=== PATIENT | female | born 1990 | race African-American/Black ===

== ENCOUNTER 2016-09-21 16:01 | Emergency (ER) | payer OTHER ==
[~2016-09-21] VITALS: Ht 167.6 cm; Wt 68.0 kg
[~2016-09-21 16:01] MED LIST: ALPR2TAB2 PO; FERR1TAB84 PO
[2016-09-21 16:29] VITALS: BP 116/66
== END 2016-09-21 19:51 | disposition left against medical advice (07) ==
LOC: ER 16:01
DX: Z53.21 Procedure and treatment not carried out due to patient leaving prior to being seen by health care provider (principal)

== ENCOUNTER 2017-10-10 12:08 | Emergency (ER) | payer OTHER ==
[~2017-10-10] VITALS: Ht 167.6 cm; Wt 70.0 kg
[2017-10-10] MEDS ORDERED: MORPHINE SULFATE 4 MG/ML CPJ (NOT FOR IM USE) IV STA (12:24)
[2017-10-10] MEDS ORDERED: ONDANSETRON HCL 4MG/2ML VIAL IV STA (12:24)
[2017-10-10] MEDS ORDERED: SODIUM CHLORIDE 0.9% 1,000 ML IV ONE (12:24)
[2017-10-10 12:45] LABS: BASOPHILS % 0.3 % (0.0-2.0); EOSINOPHILS % 0.4 % (0.0-5.0); HEMATOCRIT. 38.1 % (36.0-48.0); HEMOGLOBIN. 13.1 g/dL (12.0-16.0); LYMPHOCYTES % 8.1 % (20.0-50.0); MEAN CORPUSCULAR HEMOGLOBIN 30.3 pg (28.0-32.0); MEAN CORPUSCULAR VOLUME 88.4 fL (81.0-99.0); MEAN PLATELET VOLUME 9.3 fl (7.4-10.4); NEUTROPHILS % 81.2 % (40.0-76.0); PLATELET 272 x1000/uL (130-400); RED BLOOD CELL COUNT 4.31 mill/uL (4.2-5.4)
[2017-10-10 12:50] LABS: CHLORIDE 105 mEq/L (98-107)
[2017-10-10 13:08] LABS: HCG SCREEN NEGATIVE
[2017-10-10] MEDS ORDERED: ACETAMINOPHEN 325MG TABLET PO ONE (13:45)
[2017-10-10] MEDS ORDERED: CLINDAMYCIN 900 MG in DEXTROSE 5% WATER 50 ML IV ONE (14:30)
[2017-10-10] MEDS ORDERED: IOHEXOL-300 100 ML BOTTLE ONE (14:50)
[2017-10-10] MEDS ORDERED: MORPHINE SULFATE 4 MG/ML CPJ (NOT FOR IM USE) IV ONE (15:15)
[2017-10-10] MEDS ORDERED: CLINDAMYCIN 900 MG in DEXTROSE 5% WATER 50 ML IV NR (15:15)
[2017-10-10 17:46] VITALS: BP 110/65
== END 2017-10-10 17:53 | disposition home or self-care (01) ==
LOC: ER 13:33
DX: L02.211 Cutaneous abscess of abdominal wall (principal); F12.10 Cannabis abuse, uncomplicated
CPT/HCPCS: 36415; 74177; 80053; 84703; 85025; 87040; 96365; 96375; 96376; 99285; J2270; J2405; J3490; J7030; Q9967; J7060

== ENCOUNTER 2018-07-09 15:20 | Emergency (ER) | payer MEDICAID, OTHER ==
[~2018-07-09] VITALS: Ht 167.6 cm; Wt 86.0 kg
[2018-07-09 20:33] LABS: CLARITY URINE CLEAR (CLEAR); COLOR URINE YELLOW (YELLOW); KETONES URINE NEGATIVE (NEGATIVE); LEUKOCYTE ESTERASE URINE 1+ (NEGATIVE); NITRITE URINE NEGATIVE (NEGATIVE); OCCULT BLOOD URINE NEGATIVE (NEGATIVE); PH URINE 5.5 (4.5-8.0); PROTEIN URINE TRACE (NEGATIVE); SPECIFIC GRAVITY URINE 1.034 (1.005-1.030)
[2018-07-09 21:22] LABS: BASOPHILS % 0.7 % (0.0-2.0); CHLORIDE 109 mEq/L (98-107); EOSINOPHILS % 4.3 % (0.0-5.0); HEMATOCRIT. 37.1 % (36.0-48.0); HEMOGLOBIN. 12.5 g/dL (12.0-16.0); LYMPHOCYTES % 28.2 % (20.0-50.0); MEAN CORPUSCULAR HEMOGLOBIN 30.6 pg (28.0-32.0); MEAN CORPUSCULAR VOLUME 91.3 fL (81.0-99.0); MEAN PLATELET VOLUME 9.5 fl (7.4-10.4); MONOCYTES % 10.1 % (2.0-8.0); NEUTROPHILS % 56.7 % (40.0-76.0); PLATELET 289 x1000/uL (130-400); RED BLOOD CELL COUNT 4.06 mill/uL (4.2-5.4); RED CELL DISTRIBUTION WIDTH 13.3 % (11.6-14.6)
[2018-07-09 21:45] LABS: B-HCG QUANTITATIVE 10820 mIU/mL (<3)
[2018-07-09 22:17] VITALS: BP 118/65
== END 2018-07-09 22:20 | disposition home or self-care (01) ==
LOC: ER 15:20
DX: O23.40 Unspecified infection of urinary tract in pregnancy, unspecified trimester (principal); O9A.219 Injury, poisoning and certain other consequences of external causes complicating pregnancy, unspecified trimester; R51 Headache; R42 Dizziness and giddiness; M54.2 Cervicalgia; M54.9 Dorsalgia, unspecified; F12.10 Cannabis abuse, uncomplicated; Z98.890 Other specified postprocedural states; V43.62XA Car passenger injured in collision with other type car in traffic accident, initial encounter; Y93.89 Activity, other specified; Y92.89 Other specified places as the place of occurrence of the external cause; Y99.8 Other external cause status
CPT/HCPCS: 36415; 76801; 76817; 80053; 81003; 81025; 84702; 85025; 86850; 86900; 86901; 99284; Z7610

== ENCOUNTER 2022-04-25 07:53 | Observation (INO) | payer MEDICAID, OTHER ==
[~2022-04-25] VITALS: Ht 167.6 cm; Wt 95.0 kg
[2022-04-25] MEDS ORDERED: LEVETIRACETAM 500MG PREMIX 100 ML IV ONE (08:00)
[2022-04-25] MEDS ORDERED: ONDANSETRON HCL 4MG/2ML INJ IV ONE ×2 (08:30→10:45)
[2022-04-25] MEDS ORDERED: LEVETIRACETAM 1000MG PREMIX 100 ML IV ONE (08:30)
[2022-04-25 09:39] VITALS: BP 144/79
[2022-04-25 09:50] LABS: BASOPHILS % 0.4 % (0.0-2.0); EOSINOPHILS % 1.8 % (0.0-5.0); HEMATOCRIT. 37.4 % (36.0-48.0); HEMOGLOBIN. 12.3 g/dL (12.0-16.0); LYMPHOCYTES % 17.4 % (20.0-50.0); MEAN CORPUSCULAR HEMOGLOBIN 30.7 pg (28.0-32.0); MEAN CORPUSCULAR VOLUME 93.1 fL (81.0-99.0); MEAN PLATELET VOLUME 9.6 fl (7.4-10.4); MONOCYTES % 10.3 % (2.0-8.0); NEUTROPHILS % 70.1 % (40.0-76.0); PLATELET 349 x1000/uL (130-400); RED BLOOD CELL COUNT 4.01 mill/uL (4.2-5.4); RED CELL DISTRIBUTION WIDTH 14.2 % (11.6-14.6)
[2022-04-25 09:54] LABS: CHLORIDE 103 mEq/L (98-107)
[2022-04-25] MEDS ORDERED: POTASSIUM CHLORIDE 20MEQ TABLET SR PO ONE (10:15)
[2022-04-25 10:19] LABS: B-HCG QUANTITATIVE 22797 mIU/mL (<3); ETHANOL BLOOD < 10 mg/dL
== END 2022-04-25 13:45 | disposition home or self-care (01) ==
LOC: ER 07:53 → 8 EST A/PP 12:17
PROVIDERS: ADMIT Specialist; ATTEND Specialist
DX: O99.353 Diseases of the nervous system complicating pregnancy, third trimester (principal); G40.909 Epilepsy, unspecified, not intractable, without status epilepticus; O99.283 Endocrine, nutritional and metabolic diseases complicating pregnancy, third trimester; E87.6 Hypokalemia; Z3A.28 28 weeks gestation of pregnancy; Z98.891 History of uterine scar from previous surgery; Z79.899 Other long term (current) drug therapy; Z98.890 Other specified postprocedural states
CPT/HCPCS: 36415; 59025; 76805; 76818; 80053; 80320; 82962; 84702; 85025; 96365; 96375; 99284; G0378; J1953; J2405; 99281; G0480

== ENCOUNTER 2022-09-19 11:30 | Emergency (ER) | payer MEDICAID, OTHER ==
[~2022-09-19] VITALS: Ht 172.7 cm; Wt 80.0 kg
[~2022-09-19 11:30] MED LIST changes: -ALPR2TAB2 PO
[2022-09-19] MEDS ORDERED: LORAZEPAM 2MG/ML CPJ IM ONE (12:00)
[2022-09-19] MEDS ORDERED: SODIUM CHLORIDE 0.9% 1,000 ML IV ONE (13:15)
[2022-09-19] MEDS ORDERED: ONDANSETRON HCL 4MG/2ML INJ IV ONE (13:15)
[2022-09-19 14:46] LABS: HEMATOCRIT. 39.3 % (36.0-48.0); HEMOGLOBIN. 12.6 g/dL (12.0-16.0); MEAN CORPUSCULAR HEMOGLOBIN 28.6 pg (28.0-32.0); MEAN CORPUSCULAR VOLUME 88.8 fL (81.0-99.0); MEAN PLATELET VOLUME 9.6 fl (7.4-10.4); PLATELET 350 x1000/uL (130-400); RED BLOOD CELL COUNT 4.42 mill/uL (4.2-5.4); RED CELL DISTRIBUTION WIDTH 15.7 % (11.6-14.6)
[2022-09-19 15:18] LABS: CHLORIDE 110 mEq/L (98-107); ETHANOL BLOOD < 10 mg/dL
[2022-09-19 15:19] LABS: HCG SCREEN NEGATIVE
[2022-09-19 17:00] VITALS: BP 125/78
[2022-09-19 17:36] LABS: PLATELET ESTIMATE NORMAL
[2022-09-19 17:41] LABS: CLARITY URINE CLEAR (CLEAR); COLOR URINE YELLOW (YELLOW); KETONES URINE 3+ (NEGATIVE); LEUKOCYTE ESTERASE URINE TRACE (NEGATIVE); NITRITE URINE NEGATIVE (NEGATIVE); OCCULT BLOOD URINE NEGATIVE (NEGATIVE); PH URINE 5.5 (4.5-8.0); PROTEIN URINE 1+ (NEGATIVE); SPECIFIC GRAVITY URINE 1.018 (1.005-1.030); UROBILINOGEN URINE 0.2 E.U./dL (0.2-1.0)
[2022-09-19] MEDS ORDERED: KEPP500 MT (18:02)
[2022-09-19 18:29] LABS: *AMPHETAMINES SCREEN URINE NEGATIVE (NEGATIVE); *BARBITURATES SCREEN URINE NEGATIVE (NEGATIVE); *COCAINE SCREEN URINE NEGATIVE (NEGATIVE); METHADONE URINE SCREEN NEGATIVE (NEGATIVE); PHENCYCLIDINE URINE SCREEN NEGATIVE (NEGATIVE)
[2022-09-19 18:32] LABS: *BENZODIAZEPINES SCREEN URINE PRESUMTIVE POSITIVE (NEGATIVE); CANNABINOID URINE SCREEN PRESUMTIVE POSITIVE (NEGATIVE); OPIATES URINE SCREEN PRESUMTIVE POSITIVE (NEGATIVE)
== END 2022-09-19 18:49 | disposition home or self-care (01) ==
LOC: ER 11:30
DX: R56.9 Unspecified convulsions (principal); J45.909 Unspecified asthma, uncomplicated; Z98.890 Other specified postprocedural states
CPT/HCPCS: 36415; 70450; 80053; 80305; 80320; 81003; 83605; 84703; 85025; 96361; 96372; 96374; 99285; J2060; J2405; J7030; Z7610; G0480

== ENCOUNTER 2023-02-07 04:39 | Emergency (ER) | payer OTHER ==
[~2023-02-07] VITALS: Ht 170.2 cm; Wt 90.7 kg
[~2023-02-07 04:39] MED LIST changes: +KEPP500 MT
[2023-02-07 04:44] VITALS: O2SAT 100
[2023-02-07] MEDS ORDERED: ACETAMINOPHEN 325MG TABLET PO ONE (05:30)
[2023-02-07] MEDS ORDERED: KETOROLAC 15MG/ML VIAL IV ONE (05:45)
[2023-02-07] MEDS ORDERED: ONDANSETRON HCL 4MG/2ML INJ IV ONE (05:45)
[2023-02-07 05:47] LABS: BASOPHILS % 0.5 % (0.0-2.0); EOSINOPHILS % 2.7 % (0.0-5.0); HEMATOCRIT. 36.9 % (36.0-48.0); HEMOGLOBIN. 12.4 g/dL (12.0-16.0); LYMPHOCYTES % 12.8 % (20.0-50.0); MEAN CORPUSCULAR HEMOGLOBIN 30.1 pg (28.0-32.0); MEAN CORPUSCULAR HGB CONC 33.5 g/dL (31.0-37.0); MEAN PLATELET VOLUME 10.5 fl (7.4-10.4); MONOCYTES % 6.3 % (2.0-8.0); NEUTROPHILS % 77.7 % (40.0-76.0); PLATELET 363 x1000/uL (130-400); RED CELL DISTRIBUTION WIDTH 14.4 % (11.6-14.6); WHITE BLOOD COUNT 9.9 x1000/uL (4.5-11.0)
[2023-02-07] MEDS ORDERED: LORAZEPAM 2MG/ML CPJ IV ONE (06:30)
[2023-02-07 06:36] LABS: HCG SCREEN NEGATIVE
[2023-02-07 07:48] LABS: CLARITY URINE CLOUDY (CLEAR); COLOR URINE YELLOW (YELLOW); GLUCOSE URINE NEGATIVE (NEGATIVE); KETONES URINE NEGATIVE (NEGATIVE); LEUKOCYTE ESTERASE URINE NEGATIVE (NEGATIVE); NITRITE URINE NEGATIVE (NEGATIVE); OCCULT BLOOD URINE NEGATIVE (NEGATIVE); PROTEIN URINE TRACE (NEGATIVE); SPECIFIC GRAVITY URINE 1.014 (1.005-1.030); UROBILINOGEN URINE 0.2 E.U./dL (0.2-1.0)
[2023-02-07 07:51] LABS: WBC URINE 0-2 /hpf (0-2); YEAST URINE NONE SEEN
[2023-02-07 07:58] LABS: CHLORIDE 110 mEq/L (98-107); INDEX HEMOLYSI 3 (1-3); INDEX ICTERIC 1 (1-4); INDEX LIPEMIC 1 (1-3); POTASSIUM 3.6 mEq/L (3.5-5.1); SODIUM 137 mEq/L (136-145)
[2023-02-07 08:06] LABS: ALANINE AMINOTRANSFERASE 20 IU/L (13-61); ALBUMIN 3.8 g/dL (3.4-5.0); ASPARTATE AMINOTRANSFERASE 20 IU/L (15-37); BILIRUBIN TOTAL 0.2 mg/dL (0.1-1.0); CALCIUM 8.3 mg/dL (8.5-10.1); CARBON DIOXIDE 22 mEq/L (21-32); CREATININE 0.6 mg/dL (0.6-1.3); GLUCOSE 91 mg/dL (70-105); PROTEIN TOTAL 7.3 g/dL (6.0-8.3); UREA NITROGEN BLOOD 7 mg/dL (7-21)
[2023-02-07 08:09] LABS: BACTERIA URINE FEW; RBC URINE 0-2 /hpf (0-2); SQUAMOUS EPITHELIAL CELL URINE FEW /lpf (RARE/1+)
[2023-02-07 10:14] LABS: *AMPHETAMINES SCREEN URINE NEGATIVE (NEGATIVE); *BARBITURATES SCREEN URINE NEGATIVE (NEGATIVE); *COCAINE SCREEN URINE NEGATIVE (NEGATIVE); ECSTASY MDMA SCREEN URINE NEGATIVE (NEGATIVE); METHADONE URINE SCREEN NEGATIVE (NEGATIVE); OPIATES URINE SCREEN NEGATIVE (NEGATIVE); PHENCYCLIDINE URINE SCREEN NEGATIVE (NEGATIVE)
[2023-02-07 10:37] LABS: *BENZODIAZEPINES SCREEN URINE PRESUMTIVE POSITIVE (NEGATIVE); CANNABINOID URINE SCREEN PRESUMTIVE POSITIVE (NEGATIVE)
[2023-02-07 11:35] VITALS: BP 135/82; PULSE 82; RESP 16; TEMP 98.6
[2023-02-08] MEDS ORDERED: LEVE1000 MT (08:29)
== END 2023-02-07 11:40 | disposition home or self-care (01) ==
LOC: ER 04:39
DX: G40.909 Epilepsy, unspecified, not intractable, without status epilepticus (principal); R10.13 Epigastric pain; J45.909 Unspecified asthma, uncomplicated; Z98.890 Other specified postprocedural states; Z86.59 Personal history of other mental and behavioral disorders
CPT/HCPCS: 80053; 80305; 81003; 84703; 85025; 36415; 74176; 96374; 96375; 99285; J1885; J2060; J2405; Z7610

== ENCOUNTER 2023-02-07 18:33 | Emergency (ER) | payer OTHER ==
[~2023-02-07] VITALS: Ht 162.6 cm; Wt 60.0 kg
[2023-02-07 18:34] VITALS: BP 152/80; PULSE 104; RESP 16; TEMP 98; O2SAT 100
[2023-02-07] MEDS ORDERED: LEVETIRACETAM 1000MG PREMIX 100 ML IV ONE (18:45)
[2023-02-07] MEDS ORDERED: LORAZEPAM 2MG/ML CPJ ONE (19:04)
[2023-02-07] MEDS ORDERED: LORAZEPAM 2MG/ML CPJ IV ONE (19:15)
[2023-02-08] MEDS ORDERED: LEVE1000 MT (08:29)
== END 2023-02-08 00:28 | disposition left against medical advice (07) ==
LOC: ER 18:33 → MICUSO 20:24 → UNDOADMIN 20:24 → EDBEDREQSVC 20:42 → EDBEDREQ 20:42 → ER 02-08 00:28
DX: G40.909 Epilepsy, unspecified, not intractable, without status epilepticus (principal); J45.909 Unspecified asthma, uncomplicated; F41.9 Anxiety disorder, unspecified; F19.90 Other psychoactive substance use, unspecified, uncomplicated
CPT/HCPCS: 96365; 99291; J1953; J2060; Z7610 ×4; 99284

== ENCOUNTER 2023-02-07 23:58 | Emergency (ER) | payer OTHER ==
[~2023-02-07] VITALS: Ht 160 cm; Wt 70.0 kg
[2023-02-08 01:24] VITALS: O2SAT 100
[2023-02-08] MEDS ORDERED: LEVE1000 MT (08:29)
[2023-02-08] MEDS ORDERED: LEVETIRACETAM 500MG/5ML CUP PO SCH (08:30)
[2023-02-08] MEDS ORDERED: LEVETIRACETAM 500MG TABLET PO SCH (08:45)
[2023-02-08 08:57] VITALS: BP 118/73; PULSE 80; RESP 18; TEMP 98
[2023-02-08 09:36] LABS: CLARITY URINE CLEAR (CLEAR); COLOR URINE YELLOW (YELLOW); GLUCOSE URINE NEGATIVE (NEGATIVE); KETONES URINE 2+ (NEGATIVE); LEUKOCYTE ESTERASE URINE 1+ (NEGATIVE); NITRITE URINE NEGATIVE (NEGATIVE); OCCULT BLOOD URINE NEGATIVE (NEGATIVE); PROTEIN URINE 1+ (NEGATIVE); SPECIFIC GRAVITY URINE 1.017 (1.005-1.030); UROBILINOGEN URINE 0.2 E.U./dL (0.2-1.0)
[2023-02-08 09:59] LABS: BACTERIA URINE TRACE; MUCUS URINE 1+ /lpf (< = 2+); RBC URINE NONE SEEN /hpf (0-2); SQUAMOUS EPITHELIAL CELL URINE 1+ /lpf (RARE/1+)
== END 2023-02-08 08:58 | disposition home or self-care (01) ==
LOC: ER 23:58
DX: G40.909 Epilepsy, unspecified, not intractable, without status epilepticus (principal); F19.90 Other psychoactive substance use, unspecified, uncomplicated; Z98.890 Other specified postprocedural states
CPT/HCPCS: 81003; 81025; 82962; 99283

== ENCOUNTER 2023-04-29 07:13 | Emergency (ER) | payer OTHER ==
[~2023-04-29] VITALS: Ht 172.7 cm; Wt 90.0 kg
[~2023-04-29 07:13] MED LIST changes: +LEVE1000 MT
[2023-04-29] MEDS ORDERED: LEVETIRACETAM 1000MG PREMIX 100 ML IV ONE (07:30)
[2023-04-29] MEDS ORDERED: MIDAZOLAM HCL 2 MG/2 ML VIAL IV ONE (07:30)
[2023-04-29 07:48] VITALS: O2SAT 98
[2023-04-29 08:14] LABS: BASOPHILS % 0.4 % (0.0-2.0); EOSINOPHILS % 2.3 % (0.0-5.0); HEMATOCRIT. 37.8 % (36.0-48.0); HEMOGLOBIN. 12.6 g/dL (12.0-16.0); LYMPHOCYTES % 12.5 % (20.0-50.0); MEAN CORPUSCULAR HEMOGLOBIN 30.3 pg (28.0-32.0); MEAN CORPUSCULAR HGB CONC 33.2 g/dL (31.0-37.0); MEAN PLATELET VOLUME 9.5 fl (7.4-10.4); MONOCYTES % 6.2 % (2.0-8.0); NEUTROPHILS % 78.6 % (40.0-76.0); PLATELET 276 x1000/uL (130-400); RED BLOOD CELL COUNT 4.16 mill/uL (4.2-5.4); RED CELL DISTRIBUTION WIDTH 13.7 % (11.6-14.6); WHITE BLOOD COUNT 10.3 x1000/uL (4.5-11.0)
[2023-04-29 08:20] LABS: HCG SCREEN NEGATIVE
[2023-04-29 08:26] LABS: ALANINE AMINOTRANSFERASE 11 IU/L (10-49); ALBUMIN 4.1 g/dL (3.2-4.8); ASPARTATE AMINOTRANSFERASE 19 IU/L (<34); BILIRUBIN TOTAL 0.2 mg/dL (0.1-1.0); CARBON DIOXIDE 24 mEq/L (21-32); CHLORIDE 109 mEq/L (98-107); CREATININE 0.8 mg/dL (0.6-1.0); GLUCOSE 119 mg/dL (70-105); POTASSIUM 3.9 mEq/L (3.5-5.1); PROTEIN TOTAL 6.4 g/dL (6.0-8.3); SODIUM 140 mEq/L (136-145); UREA NITROGEN BLOOD 7 mg/dL (9-23)
[2023-04-29 08:34] LABS: ETHANOL BLOOD < 10 mg/dL (<10); TROPONIN I HIGH SENSITIVITY < 4 ng/L (3.0-34)
[2023-04-29] MEDS ORDERED: ONDANSETRON HCL 4MG/2ML INJ IV ONE (13:00)
[2023-04-29 13:20] VITALS: BP 142/79; PULSE 88; RESP 18; TEMP 98.5
[2023-04-29] MEDS ORDERED: LEVE1000 MT (13:35)
== END 2023-04-29 13:21 | disposition home or self-care (01) ==
LOC: ER 07:13
DX: R56.9 Unspecified convulsions (principal); Z98.890 Other specified postprocedural states
CPT/HCPCS: 80053; 80320; 84703; 85025; 84484; 36415; 71045; 93005; 96365; 96375; 99285; J1953; J2250; Z7610 ×4; G0480

== ENCOUNTER 2023-06-23 11:53 | Emergency (ER) | payer OTHER ==
[~2023-06-23] VITALS: Ht 167.6 cm; Wt 75.0 kg
[2023-06-23 12:01] VITALS: O2SAT 100
[2023-06-23 13:00] LABS: EOSINOPHILS % 4.5 % (0.0-5.0); HEMATOCRIT. 37.1 % (36.0-48.0); HEMOGLOBIN. 12.1 g/dL (12.0-16.0); LYMPHOCYTES % 29.9 % (20.0-50.0); MEAN CORPUSCULAR HEMOGLOBIN 30.3 pg (28.0-32.0); MEAN CORPUSCULAR HGB CONC 32.7 g/dL (31.0-37.0); MEAN CORPUSCULAR VOLUME 92.6 fL (81.0-99.0); MEAN PLATELET VOLUME 9.6 fl (7.4-10.4); MONOCYTES % 9.6 % (2.0-8.0); PLATELET 285 x1000/uL (130-400); RED CELL DISTRIBUTION WIDTH 13.5 % (11.6-14.6); WHITE BLOOD COUNT 5.4 x1000/uL (4.5-11.0)
[2023-06-23 13:10] LABS: ALANINE AMINOTRANSFERASE 9 IU/L (10-49); ASPARTATE AMINOTRANSFERASE 11 IU/L (<34); BILIRUBIN TOTAL 0.6 mg/dL (0.1-1.0); CALCIUM 9.2 mg/dL (8.7-10.4); CARBON DIOXIDE 26 mEq/L (21-32); CHLORIDE 107 mEq/L (98-107); CREATININE 0.9 mg/dL (0.6-1.0); GLUCOSE 79 mg/dL (70-105); POTASSIUM 4.4 mEq/L (3.5-5.1); PROTEIN TOTAL 7.3 g/dL (6.0-8.3); SODIUM 138 mEq/L (136-145); UREA NITROGEN BLOOD 12 mg/dL (9-23)
[2023-06-23 13:25] LABS: TROPONIN I HIGH SENSITIVITY < 4 ng/L (3.0-34)
[2023-06-23] MEDS ORDERED: MAGNESIUM/ALUMINUM HYDROXIDE/SIMETHICONE 30ML UDC PO ONE (14:15)
[2023-06-23] MEDS ORDERED: ONDANSETRON 4MG ODT PO ONE (14:45)
[2023-06-23] MEDS ORDERED: LEVE1000 MT (15:08)
[2023-06-23 15:21] LABS: HCG SCREEN NEGATIVE
[2023-06-23 16:02] VITALS: BP 135/81; PULSE 76; RESP 16; TEMP 99.5
== END 2023-06-23 16:03 | disposition home or self-care (01) ==
LOC: ER 11:53
DX: G40.901 Epilepsy, unspecified, not intractable, with status epilepticus (principal); Z98.890 Other specified postprocedural states
CPT/HCPCS: 99291; 80053; 84703; 85025; 84484; 36415; 71045; 93005; Q0162

== ENCOUNTER 2023-11-17 16:47 | Emergency (ER) | payer OTHER ==
[~2023-11-17] VITALS: Ht 167.6 cm; Wt 86.0 kg
[~2023-11-17 16:47] MED LIST changes: +LEVE10006 MT; +ONDA4TAB11 PO
[2023-11-17 16:52] VITALS: O2SAT 99
[2023-11-17 17:33] LABS: EOSINOPHILS % 7.4 % (0.0-5.0); HEMATOCRIT. 35.2 % (36.0-48.0); HEMOGLOBIN. 11.8 g/dL (12.0-16.0); LYMPHOCYTES % 37.6 % (20.0-50.0); MEAN CORPUSCULAR HEMOGLOBIN 31.1 pg (28.0-32.0); MEAN CORPUSCULAR HGB CONC 33.5 g/dL (31.0-37.0); MEAN CORPUSCULAR VOLUME 92.8 fL (81.0-99.0); MEAN PLATELET VOLUME 9.3 fl (7.4-10.4); MONOCYTES % 7.7 % (2.0-8.0); NEUTROPHILS % 46.3 % (40.0-76.0); PLATELET 273 x1000/uL (130-400); RED BLOOD CELL COUNT 3.79 mill/uL (4.2-5.4); RED CELL DISTRIBUTION WIDTH 13.5 % (11.6-14.6); WHITE BLOOD COUNT 5.6 x1000/uL (4.5-11.0)
[2023-11-17 17:44] LABS: CHLORIDE 104 mEq/L (98-107); POTASSIUM 3.5 mEq/L (3.5-5.1); SODIUM 137 mEq/L (136-145)
[2023-11-17 17:45] LABS: CALCIUM 8.7 mg/dL (8.7-10.4); CARBON DIOXIDE 26 mEq/L (21-32)
[2023-11-17 17:47] LABS: HCG SCREEN NEGATIVE
[2023-11-17 17:50] LABS: CREATININE 0.7 mg/dL (0.6-1.0); GLUCOSE 84 mg/dL (70-105); UREA NITROGEN BLOOD 10 mg/dL (9-23)
[2023-11-17 17:57] LABS: TROPONIN I HIGH SENSITIVITY < 4 ng/L (3.0-34)
[2023-11-17] MEDS ORDERED: KEPP500 MT (18:58)
[2023-11-17 19:17] VITALS: BP 141/75; PULSE 79; RESP 18; TEMP 98.5
== END 2023-11-17 19:56 | disposition home or self-care (01) ==
LOC: ER 16:47
DX: R07.89 Other chest pain (principal); F12.10 Cannabis abuse, uncomplicated; Z86.59 Personal history of other mental and behavioral disorders; Z98.890 Other specified postprocedural states
CPT/HCPCS: 80048; 84703; 83690; 85025; 84484; 36415; 71045; 93005; 99285; Z7610 ×3

== ENCOUNTER 2025-03-31 21:34 | Emergency (ER) | payer OTHER ==
[~2025-03-31] VITALS: Ht 167.6 cm; Wt 73.0 kg
[~2025-03-31 21:34] MED LIST changes: +LEVE100023 MT; -LEVE10006 MT; +ONDA-239 PO; -ONDA4TAB11 PO
[2025-03-31 21:35] VITALS: O2SAT 98
[2025-03-31 21:37] VITALS: BP 144/93; PULSE 90; RESP 18; TEMP 36.7; O2SAT 100
[2025-03-31 22:40] LABS: BASOPHILS % 0.7 % (0.0-2.0); EOSINOPHILS % 0.3 % (0.0-5.0); HEMATOCRIT. 37.2 % (36.0-48.0); HEMOGLOBIN. 12.7 g/dL (12.0-16.0); LYMPHOCYTES % 15.3 % (20.0-50.0); MEAN PLATELET VOLUME 8.8 fl (7.4-10.4); MONOCYTES % 8.7 % (2.0-8.0); NEUTROPHILS % 75.0 % (40.0-76.0); PLATELET 333 x1000/uL (130-400); RED BLOOD CELL COUNT 4.14 mill/uL (4.2-5.4); RED CELL DISTRIBUTION WIDTH 13.0 % (11.6-14.6)
[2025-03-31 23:00] LABS: HCG SCREEN NEGATIVE
[2025-03-31 23:04] LABS: CREATININE 0.9 mg/dL (0.6-1.0); UREA NITROGEN BLOOD 7 mg/dL (9-23)
[2025-04-01] MEDS ORDERED: POTASSIUM CHLORIDE 20MEQ/PACKET PO ONE
== END 2025-04-01 00:50 | disposition left against medical advice (07) ==
LOC: ER 21:34 → CMPBEDREQ 04-01 07:51
DX: S09.90XA Unspecified injury of head, initial encounter (principal); G40.909 Epilepsy, unspecified, not intractable, without status epilepticus; R44.0 Auditory hallucinations; W22.8XXA Striking against or struck by other objects, initial encounter; Y93.89 Activity, other specified; Y92.89 Other specified places as the place of occurrence of the external cause; Y99.8 Other external cause status
CPT/HCPCS: 80048; 84703; 85025; 36415; 70450; 99284; Z7610 ×2

== ENCOUNTER 2025-04-05 11:53 | Emergency (ER) | payer OTHER ==
[~2025-04-05] VITALS: Ht 170.2 cm; Wt 91.0 kg
[2025-04-05 12:16] VITALS: BP 126/92; PULSE 80; RESP 18; TEMP 36.7; O2SAT 98
== END 2025-04-05 13:55 | disposition left against medical advice (07) ==
LOC: ER 11:53
DX: K08.89 Other specified disorders of teeth and supporting structures (principal)
CPT/HCPCS: 93005; 99281